=== PATIENT | female | born 1955 | race Caucasian/White ===

== ENCOUNTER 2016-11-02 11:30 | Inpatient (IN) | payer OTHER ==
[2016-11-07] MEDS ORDERED: ceFAZolin 1 GM in NORMAL SALINE MINI-BAG+ 100 ML IV PRN (06:07)
[2016-11-07] MEDS ORDERED: TRANEXAMIC ACID 1,000 MG in NORMAL SALINE 100 ML IV SCH ×2 (06:07→07:15)
[2016-11-07] MEDS ORDERED: TRANEXAMIC ACID 1,000 MG/10 ML VIAL IV ONE ×3 (06:37→13:09)
[2016-11-07] MEDS ORDERED: NORFLURANE/HFC 245FA 1 APPLIC CAN TOPICAL ONE (06:37)
[2016-11-07] MEDS ORDERED: BUPIVACAINE HCL/PF 0.25% 10 ML VIAL INJ ONE (07:07)
[2016-11-07] MEDS ORDERED: BACITRACIN 50,000 UNITS VIAL IM ONE (07:08)
[2016-11-07] MEDS ORDERED: BUPIVACAINE/EPI 0.5% 50 ML VIAL INFILTRAT ONE (07:08)
[2016-11-07] MEDS ORDERED: KETOROLAC TROMETHAMINE 30 MG/ML VIAL ONE (07:09)
[2016-11-07] MEDS ORDERED: ROPIVACAINE HCL 0.5% 30 ML ONE (07:10)
[2016-11-07] MEDS ORDERED: SODIUM CHLORIDE ONE (07:13)
[2016-11-07] MEDS ORDERED: LIDOCAINE HCL 1% 20 ML VIAL SUBCUT PRN (07:15)
[2016-11-07] MEDS ORDERED: ceFAZolin 1 GM in NORMAL SALINE MINI-BAG+ 100 ML IV SCH (07:15)
[2016-11-07] MEDS ORDERED: ACETAMINOPHEN 1,000 MG/100 ML VIAL IV SCH ×2 (07:15→08:34)
[2016-11-07] MEDS ORDERED: ONDANSETRON HCL 4 MG/2 ML VIAL IV PRN ×2 (07:15→08:34)
[2016-11-07] MEDS ORDERED: FAMOTIDINE IN SALINE, ISO-OSM 20 MG/50 ML PIGGYBACK IV SCH (07:15)
[2016-11-07] MEDS ORDERED: MIDAZOLAM HCL 2 MG/2 ML SYR IV PRN (07:15)
[2016-11-07] MEDS ORDERED: MORPHINE SULFATE/PF 10 MG/10 ML VIAL ONE (07:19)
[2016-11-07] MEDS ORDERED: FENTANYL 100 MCG/2 ML VIAL ONE (07:32)
[2016-11-07] MEDS ORDERED: TETRACAINE HCL 1% 20 MG/2 ML AMP ONE (07:33)
[2016-11-07] MEDS ORDERED: MIDAZOLAM HCL 2 MG/2 ML VIAL ONE (07:39)
[2016-11-07] MEDS ORDERED: LACTATED RINGERS 1,000 ML IV SCH ×4 (08:00→15:00)
[2016-11-07] MEDS ORDERED: LIDOCAINE HCL 2% 20 ML VIAL ONE (08:08)
[2016-11-07] MEDS ORDERED: NALOXONE HCL 0.4 MG/ML VIAL IV PRN ×6 (08:34→11:27)
[2016-11-07] MEDS ORDERED: DIPHENHYDRAMINE 25 MG CAPSULE PO PRN ×2 (08:34→11:27)
[2016-11-07] MEDS ORDERED: DIPHENHYDRAMINE 50 MG/ML VIAL IV PRN ×2 (08:34→11:27)
[2016-11-07] MEDS ORDERED: NALBUPHINE HCL 10 MG/ML AMP IV PRN ×2 (08:34→11:27)
[2016-11-07] MEDS ORDERED: FENTANYL 100 MCG/2 ML VIAL IV PRN (08:34)
[2016-11-07] MEDS ORDERED: ONDANSETRON HCL 4 MG/2 ML VIAL ONE (10:43)
--- NOTE | 2016-11-07 11:59 | OPERATIVE REPORT ---
Preoperative diagnosis: Right knee osteoarthritis Postoperative diagnosis: Right knee osteoarthritis Procedure: Right total knee arthroplasty Primary surgeon: Dr. Pardeep Sosa Anesthesia: Spinal with sedation Specimens removed: Diseased bone and soft tissue Estimated blood loss: Minimal Compilations: None Total tourniquet time: 84 minutes Procedure note: The patient was brought to the OR suite and after administration of spinal anesthesia the right lower extremity was prepped and draped in a sterile fashion. A well-padded tourniquet was applied to the right proximal thigh. The incision site was injected with half percent bupivacaine with epinephrine prior to incision. A midline longitudinal incision was made over the knee. Dissection was carried down through the layers. Any small bleeders were cauterized with electrocautery device. Flaps were created and a medial parapatellar arthrotomy was performed. Soft tissue releases were performed including removal of anterior fat pad the ACL and PCL were removed and the anterior horns of the medial lateral meniscus. An intramedullary drill was performed on the femur and the [email or web address] knee system instrumentation and cutting blocks were dialed into the patients specific requirements and the appropriate bone cuts and defects were made on both the femur, tibia and patella. After the distal cut on the femur and the proximal cut of the tibia are performed a 10 spacer block was inserted which demonstrated good balance. The trial implants were inserted and the knee was taken through full range of motion was noted to be exceptionally stable and well balanced throughout flexion and extension. Trial implants removed and the knee was copiously irrigated with bacitracin infused normal saline. The knee was injected with the cocktail containing 15mg Ketoralac, 150mg Robivicaine, 0.3ml Epinepherine 1:1000, 4mg Morphine Sulfate brought up to a volume of 50ml with normal saline. Gloves were changed throughout the case. The final implants were cemented into place and excess cement was removed. The cement was allowed to harden with the heel on the Rousseau stand with the knee in full extension. The final polyethylene was inserted and locked into place. The knee was again taken through full range of motion was noted to be stable throughout all ranges of motion and well-balanced. A Hemovac drain was placed. The parapatellar arthrotomy was closed utilizing #2 FiberWire intermittently with #1 Vicryl. The remainder of the closure was performed utilizing 0 Vicryl followed by 2-0 Vicryl followed by 3-0 Monocryl at level of the skin. The skin was closed with Dermabond and a Aquacell Ag dressing was placed followed by application of Adrian bandage and the Polar Care. The patient was transferred from the OR suite to the recovery room in stable condition. Orthopedic implants: 1. Isrrael Persona highly cross-linked polyethylene with vitamin E (Vivacit-E) right size 10 2. Isrrael Persona cemented posterior stabilized right size 6 femur 3. Isrrael Persona 29 mm x 8 mm thick all polyethylene patella 4. Isrrael Persona natural tibia 5 stem right size E. MTDD
[2016-11-07] MEDS ORDERED: TRANEXAMIC ACID 1,000 MG in NORMAL SALINE MINI-BAG+ 100 ML IV ONE (12:00)
[2016-11-07] MEDS ORDERED: NORMAL SALINE MINI-BAG+ 100 ML IV ONE (13:11)
[2016-11-07] MEDS: ASCORBIC ACID 500 MG TABLET PO SCH ×2 (13:18→21:08)
[2016-11-07] MEDS: FOLIC ACID 1 MG TABLET PO SCH (13:18)
[2016-11-07] MEDS: MULTIVITAMINS THERAPEUTIC 1 TABLET PO SCH (13:18)
[2016-11-07] MEDS ORDERED: LACTATED RINGERS 1,000 ML IV ONE (14:34)
[2016-11-07] MEDS: ceFAZolin 1 GM in NORMAL SALINE MINI-BAG+ 100 ML IV SCH (17:47)
[2016-11-08] MEDS: ceFAZolin 1 GM in NORMAL SALINE MINI-BAG+ 100 ML IV SCH ×2 (00:03→08:30)
[2016-11-08] MEDS: ACETAMINOPHEN 325 MG TABLET PO PRN (02:59)
[2016-11-08 07:21] LABS: HEMATOCRIT 34.7 % (36.0-48.0); HEMOGLOBIN 11.7 g/dL (12.0-16.0); MEAN CORPUS. HGB CONCENTRATION 33.7 g/dL (32.0-36.0); MEAN CORPUSCULAR HEMOGLOBIN 31.7 pg (29.0-35.0); RED BLOOD COUNT 3.69 X 10^6uL (4.20-6.10); RED CELL DISTRIBUTION WIDTH 12.5 % (11.5-14.5)
[2016-11-08 07:22] LABS: BASOPHILS 0.4 % (0.0-2.0); EOSINOPHILS 3.2 % (0.0-6.0); EOSINOPHILS# 0.2 X 10^3uL (0.0-0.4); LYMPHOCYTES 30.4 % (20.0-40.0); LYMPHOCYTES# 1.8 X 10^3uL (0.8-3.8); MEAN PLATELET VOLUME 7.3 fL (7.4-10.4); MONOCYTES 7.7 % (2.0-10.0); MONOCYTES# 0.5 X 10^3uL (0.2-1.0); NEUTROPHILS 58.3 % (54.0-75.0); NEUTROPHILS# 3.5 X 10^3uL (2.6-6.7)
[2016-11-08] MEDS: ENOXAPARIN SODIUM 30 MG/0.3 ML SYR SUBCUT SCH ×3 (08:41→20:50)
[2016-11-08] MEDS: FOLIC ACID 1 MG TABLET PO SCH (08:42)
[2016-11-08] MEDS: ASCORBIC ACID 500 MG TABLET PO SCH ×2 (08:42→20:50)
[2016-11-08] MEDS: MULTIVITAMINS THERAPEUTIC 1 TABLET PO SCH (08:42)
[2016-11-09 07:19] LABS: HEMATOCRIT 33.6 % (36.0-48.0); HEMOGLOBIN 11.1 g/dL (12.0-16.0); LYMPHOCYTES 27.4 % (20.0-40.0); MEAN CORPUSCULAR HEMOGLOBIN 31.6 pg (29.0-35.0); MEAN PLATELET VOLUME 7.3 fL (7.4-10.4); NEUTROPHILS 61.9 % (54.0-75.0); RED BLOOD COUNT 3.51 X 10^6uL (4.20-6.10); RED CELL DISTRIBUTION WIDTH 12.9 % (11.5-14.5); WHITE BLOOD COUNT 7.9 X 10^3uL (3.9-10.7)
[2016-11-09 07:20] LABS: BASOPHILS 0.4 % (0.0-2.0); EOSINOPHILS 2.1 % (0.0-6.0); EOSINOPHILS# 0.2 X 10^3uL (0.0-0.4); LYMPHOCYTES# 2.2 X 10^3uL (0.8-3.8); MONOCYTES 8.2 % (2.0-10.0); MONOCYTES# 0.7 X 10^3uL (0.2-1.0); NEUTROPHILS# 4.9 X 10^3uL (2.6-6.7)
[2016-11-09] MEDS: ONDANSETRON HCL 4 MG/2 ML VIAL IV PRN ×2 (07:42→12:25)
[2016-11-09] MEDS ORDERED: clonazePAM 1 MG TABLET PO PRN (08:35)
[2016-11-09] MEDS: MULTIVITAMINS THERAPEUTIC 1 TABLET PO SCH (08:39)
[2016-11-09] MEDS: ASCORBIC ACID 500 MG TABLET PO SCH ×3 (08:40→20:06)
[2016-11-09] MEDS: ENOXAPARIN SODIUM 30 MG/0.3 ML SYR SUBCUT SCH ×2 (08:40→20:05)
--- NOTE | 2016-11-09 08:43 | PROGRESS NOTE: Orthopedics ---
Orthopedic PN Subjective - Subjective Principal Diagnosis: s/p right total knee arthroplasty Post-op Day: 2 Interval history: Pt doing well. Ambulating out in the hallway to the windows with physical therapy. Pain well controlled. Ortho PN Objective Exam - Latest Vital Signs and I&O Latest Vital Signs/I&O: Vital Signs Temp 36.5 C 11/09/16 06:34 Pulse 84 11/09/16 06:34 Resp 13 11/09/16 06:34 BP 148/78 11/09/16 06:34 Pulse Ox 94 11/09/16 06:34 Intake & Output 11/08/16 11/09/16 11/09/16 17:59 05:59 17:59 Intake Total 687 250 Output Total 1350 300 Balance -663 -50 Intake: Oral 687 250 Output: Urine 1350 300 Other: Urine Appearance Clear Clear Urine Color Yellow Yellow Voiding Method Toilet Toilet # Voids 1 - Post-Operative Exam Post-op Day: 2 Dressing Status: dry & intact Drainage Amount: none Distal Pulses: +2 Active Motor: intact Sensation: intact Humera's sign: Negative Calf tenderness: no Weight bearing status: as tolerated - Lab Labs: Laboratory Last Values WBC 7.9 X 10^3uL (3.9-10.7) 11/09/16 05:00 RBC 3.51 X 10^6uL (4.20-6.10) L 11/09/16 05:00 Hgb 11.1 g/dL (12.0-16.0) L 11/09/16 05:00 Hct 33.6 % (36.0-48.0) L 11/09/16 05:00 MCV 96.0 fL (80.0-100.0) 11/09/16 05:00 MCH 31.6 pg (29.0-35.0) 11/09/16 05:00 MCHC 33.0 g/dL (32.0-36.0) 11/09/16 05:00 RDW 12.9 % (11.5-14.5) 11/09/16 05:00 Plt Count 228 X 10^3uL (130-440) 11/09/16 05:00 MPV 7.3 fL (7.4-10.4) L 11/09/16 05:00 Neutrophils % 61.9 % (54.0-75.0) 11/09/16 05:00 Lymphocytes % 27.4 % (20.0-40.0) 11/09/16 05:00 Eosinophils % 2.1 % (0.0-6.0) 11/09/16 05:00 Basophils % 0.4 % (0.0-2.0) 11/09/16 05:00 Neutrophils # 4.9 X 10^3uL (2.6-6.7) 11/09/16 05:00 Lymphocytes # 2.2 X 10^3uL (0.8-3.8) 11/09/16 05:00 Monocytes 8.2 % (2.0-10.0) 11/09/16 05:00 Monocytes # 0.7 X 10^3uL (0.2-1.0) 11/09/16 05:00 Eosinophils # 0.2 X 10^3uL (0.0-0.4) 11/09/16 05:00 Basophils # 0.0 X 10^3uL (0.0-0.1) 11/09/16 05:00 - Allied Health Notes Allied health notes reviewed: nursing, PT Assessment and Plan-Ortho - Date of Encounter Date of Encounter: 11/09/16 (1) S/P total knee arthroplasty Status: Acute Assessment and plan: Pt will continue with physical therapy. OOB tid. DVT and ABX PPx. Oral analgesia. El out today. Current Visit: Yes Quality Questions - VTE Prophylaxis Assessment VTE Present on Admission?: No Patient at risk for venous thromboembolism?: Yes VTE Risk Level: High Risk Pharmaceutical VTE prophylaxis contraindication reason: N/A- VTE prophylaxsis ordered Mechanical VTE prophylaxis contraindication reason: N/A- VTE prophylaxsis ordered (1) S/P total knee arthroplasty Qualifiers: Laterality: right Qualified Code(s): Z96.651 - Presence of right artificial knee joint
--- NOTE | 2016-11-09 08:58 | PROGRESS NOTE: Orthopedics ---
Orthopedic PN Subjective - Subjective Principal Diagnosis: s/p right total knee arthroplasty Post-op Day: 1 Interval history: Pt was seen and examined at bedside on POD#1 (11/10/16); on same day, labs and notes reviewed. Pt doing well. Ambulating well with PT out in the hallway. She was able to make it all the way to the windows. Has been receiving her DVT and ABX PPx. Her pain has been well controlled with oral analgesia. Ortho PN Objective Exam - Latest Vital Signs and I&O Latest Vital Signs/I&O: Vital Signs Temp 36.5 C 11/09/16 06:34 Pulse 84 11/09/16 06:34 Resp 13 11/09/16 06:34 BP 148/78 11/09/16 06:34 Pulse Ox 94 11/09/16 06:34 Intake & Output 11/08/16 11/09/16 11/09/16 17:59 05:59 17:59 Intake Total 687 250 Output Total 1350 300 Balance -663 -50 Intake: Oral 687 250 Output: Urine 1350 300 Other: Urine Appearance Clear Clear Urine Color Yellow Yellow Voiding Method Toilet Toilet # Voids 1 - Post-Operative Exam Post-op Day: 1 Dressing Status: dry & intact Drainage Amount: none Distal Pulses: +2 Active Motor: intact Sensation: intact Humera's sign: Negative Calf tenderness: no Weight bearing status: as tolerated - Lab Labs: Laboratory Last Values WBC 7.9 X 10^3uL (3.9-10.7) 11/09/16 05:00 RBC 3.51 X 10^6uL (4.20-6.10) L 11/09/16 05:00 Hgb 11.1 g/dL (12.0-16.0) L 11/09/16 05:00 Hct 33.6 % (36.0-48.0) L 11/09/16 05:00 MCV 96.0 fL (80.0-100.0) 11/09/16 05:00 MCH 31.6 pg (29.0-35.0) 11/09/16 05:00 MCHC 33.0 g/dL (32.0-36.0) 11/09/16 05:00 RDW 12.9 % (11.5-14.5) 11/09/16 05:00 Plt Count 228 X 10^3uL (130-440) 11/09/16 05:00 MPV 7.3 fL (7.4-10.4) L 11/09/16 05:00 Neutrophils % 61.9 % (54.0-75.0) 11/09/16 05:00 Lymphocytes % 27.4 % (20.0-40.0) 11/09/16 05:00 Eosinophils % 2.1 % (0.0-6.0) 11/09/16 05:00 Basophils % 0.4 % (0.0-2.0) 11/09/16 05:00 Neutrophils # 4.9 X 10^3uL (2.6-6.7) 11/09/16 05:00 Lymphocytes # 2.2 X 10^3uL (0.8-3.8) 11/09/16 05:00 Monocytes 8.2 % (2.0-10.0) 11/09/16 05:00 Monocytes # 0.7 X 10^3uL (0.2-1.0) 11/09/16 05:00 Eosinophils # 0.2 X 10^3uL (0.0-0.4) 11/09/16 05:00 Basophils # 0.0 X 10^3uL (0.0-0.1) 11/09/16 05:00 - Allied Health Notes Allied health notes reviewed: nursing, PT Assessment and Plan-Ortho - Date of Encounter Date of Encounter: 11/09/16 (1) S/P total knee arthroplasty Status: Acute Assessment and plan: Pt will continue with physical therapy. OOB tid. DVT and ABX PPx. Oral analgesia. El out today (POD#1) Current Visit: Yes Quality Questions - VTE Prophylaxis Assessment VTE Present on Admission?: No Patient at risk for venous thromboembolism?: No VTE Risk Level: High Risk Pharmaceutical VTE prophylaxis contraindication reason: N/A- VTE prophylaxsis ordered Mechanical VTE prophylaxis contraindication reason: N/A- VTE prophylaxsis ordered (1) S/P total knee arthroplasty Qualifiers: Laterality: right Qualified Code(s): Z96.651 - Presence of right artificial knee joint
[2016-11-09] MEDS: FOLIC ACID 1 MG TABLET PO SCH (10:19)
[2016-11-09] MEDS: LISINOPRIL 20 MG TABLET PO SCH (10:33)
[2016-11-09] MEDS: HYDROCHLOROTHIAZIDE 25 MG TABLET PO SCH (10:34)
[2016-11-09] MEDS: SERTRALINE HCL 50 MG TABLET PO SCH (10:35)
[2016-11-09] MEDS: ACETAMINOPHEN 325 MG TABLET PO PRN ×3 (10:47→20:05)
[2016-11-09] MEDS ORDERED: ATORVASTATIN CALCIUM 10 MG TABLET PO SCH (17:00)
--- NOTE | 2016-11-09 19:08 | RADIOLOGY REPORT ---
Two limited views of the right knee are compared with prior films dated 2015. There has been interval right total knee replacement. Components appear intact and in appropriate position. Surgical drain is noted. IMPRESSION: Interval unremarkable right total knee arthroplasty. MTDD
[2016-11-09] MEDS ORDERED: MELATONIN 3 MG TABLET PO SCH (21:00)
[2016-11-10 05:53] VITALS: BP 137/63; PULSE 90; RESP 16; TEMP 100.1
[2016-11-10] MEDS: ACETAMINOPHEN 325 MG TABLET PO PRN ×2 (06:30→11:49)
[2016-11-10 07:17] LABS: HEMATOCRIT 30.8 % (36.0-48.0); HEMOGLOBIN 10.3 g/dL (12.0-16.0); MEAN CORPUS. HGB CONCENTRATION 33.4 g/dL (32.0-36.0); RED BLOOD COUNT 3.25 X 10^6uL (4.20-6.10); WHITE BLOOD COUNT 7.1 X 10^3uL (3.9-10.7)
[2016-11-10 07:18] LABS: EOSINOPHIL % (Manual) 2 % (0.0-6.0); LYMPHOCYTE % (Manual) 9 % (20.0-40.0); MONOCYTE % (Manual) 14 % (2.0-10.0); NEUTROPHIL % (Manual) 75 % (54.0-75.0); PLATELET COUNT 206 X 10^3uL (130-440); PLATELET ESTIMATE ADEQUATE
[2016-11-10] MEDS: ENOXAPARIN SODIUM 30 MG/0.3 ML SYR SUBCUT SCH (08:27)
[2016-11-10] MEDS: HYDROCHLOROTHIAZIDE 25 MG TABLET PO SCH (08:27)
[2016-11-10] MEDS: LISINOPRIL 20 MG TABLET PO SCH (08:27)
[2016-11-10] MEDS: MULTIVITAMINS THERAPEUTIC 1 TABLET PO SCH (08:28)
[2016-11-10] MEDS: SERTRALINE HCL 50 MG TABLET PO SCH (08:28)
[2016-11-10] MEDS: FOLIC ACID 1 MG TABLET PO SCH (08:28)
[2016-11-10] MEDS: ASCORBIC ACID 500 MG TABLET PO SCH (08:28)
--- NOTE | 2016-11-10 09:49 | DC SUMMARY: Orthopedic Note ---
Discharge Summary: Surg/OB Provider: Date of Admission: 11/07/16 Admitting Provider: CALEB BARR DO Attending Provider: CALEB BARR DO Discharging Provider: CALEB BARR DO Primary Care Provider: Discharge Date: 11/10/16 - Diagnosis (1) S/P total knee arthroplasty Status: Acute Qualifiers: Laterality: right Qualified Code(s): Z96.651 - Presence of right artificial knee joint Hospital Course: Ms. NEGRON is a 61 year old female who underwent a total knee arthroplasty on 07 November. The patient did well with her postoperative PTx. She did receive DVT and ABX PPx. Pain was well controlled with oral analgesia. Her O2 saturation on day of discharge was 85-87% and so she will have home O2. She may shower and leave dressing in place. She will have outpatient PTx. Will continue Lovenox and Teds for 14 days post-op total. She will follow up next week in my office. Discharge - Patient/Caregiver Discharge Instructions Activity Level: WBAT with walker Diet: reg Follow up: CALEB BARR DO [ACTIVE (Staff Physician)] - 11/15/16 10:00 am Overall discharge status: stable Home Medications: Enoxaparin Sodium [LOVENOX 30mg/0.3mL*] 30 mg SUBCUT BID #22 syr Disposition: HOME, SELF-CARE Orthopedic: Discharge Phy Exam - Latest Vital Signs and I&O Latest Vital Signs/I&O: Vital Signs Temp 37.8 C H 11/10/16 05:52 Pulse 90 11/10/16 05:52 Resp 16 11/10/16 05:52 BP 137/63 11/10/16 05:52 Pulse Ox 93 11/10/16 05:52 Intake & Output 11/09/16 11/10/16 11/10/16 17:59 05:59 17:59 Intake Total 977 350 230 Output Total 600 1500 Balance 377 -1150 230 Weight 76.2 kg Intake: Oral 977 350 Oral Supplement 230 Output: Urine 600 1500 Other: Urine Appearance Clear Clear Urine Color Yellow Yellow Stool Size Moderate Moderate Stool Characteristics Soft Soft Brown Voiding Method Toilet Toilet # Voids 2 3 # Bowel Movements 2 2 - Post-Operative Exam Post-op Day: 3 Dressing Status: dry & intact Drainage Amount: none Distal Pulses: +2 Active Motor: intact Sensation: intact Humera's sign: Negative Calf tenderness: no Weight bearing status: as tolerated - Allied Health Notes Allied health notes reviewed: nursing, PT Discharge Summary Data - Medication History Medication History: Home Medications Hydrochlorothiazide [Hydrodiuril*] 12.5 mg PO DAILY 03/04/13 Lisinopril [Prinivil*] 20 mg PO DAILY 03/04/13 clonazePAM [Klonopin*] 1 mg PO BID PRN 03/04/13 Ascorbic Acid [Vitamin C*] 500 mg PO DAILY 11/02/16 Atorvastatin Calcium [Lipitor*] 20 mg PO DAILY 11/02/16 aspirin EC [Aspirin EC*] 81 mg PO DAILY 11/02/16 Melatonin [Melatonin*] 2.5 mg PO HS 11/07/16 Sertraline HCl [Zoloft*] 25 mg PO DAILY 11/07/16 Inpatient Medications 11/07/16 11:27 Acetaminophen [Tylenol] 325 - 650 mg PO Q4H PRN Folic Acid [Folate] 1 mg PO DAILY Multivitamins,Therapeutic [Thera] 1 tab PO DAILY Ondansetron HCl [Zofran] 4 mg IV Q4H PRN hydroCODone/APAP 5/325 MG [[place]] 2 tab PO Q3H PRN oxyCODONE HCL IR [Oxy Ir] 5 - 10 mg PO Q3H PRN 11/07/16 15:00 Lactated Ringers [Lr 1000 ml Bag] 1,000 ml IV CONT 11/08/16 08:00 Enoxaparin Sodium [Lovenox] 30 mg SUBCUT BID 11/09/16 08:35 clonazePAM [KlonoPIN] 1 mg PO BID PRN 11/09/16 09:00 Ascorbic Acid [Vitamin C] 500 mg PO DAILY Hydrochlorothiazide [Hydrodiuril] 12.5 mg PO DAILY Lisinopril [Prinivil] 20 mg PO DAILY Sertraline HCl [Zoloft] 25 mg PO DAILY 11/09/16 17:00 Atorvastatin Calcium [Lipitor] 20 mg PO DAILY@1700 11/09/16 21:00 Melatonin 3 mg PO HS Procedures and tests throughout hospitalization: Completed Lab Orders 11/07/16 14:25 PLATELET COUNT [HEM] Stat 11/08/16 06:15 CBC AUTO DIF, MDIF/RMOR IF IND [HEM] AMDRAW 11/09/16 05:00 CBC AUTO DIF, MDIF/RMOR IF IND [HEM] AMDRAW 11/10/16 04:30 CBC W/ MANUAL DIFFERENTIAL [HEM] Routine Completed Imaging Orders 11/07/16 11:27 KNEE; 1 [place] 2 [place] [id number] [RAD] Routine Completed Microbiology Orders 11/09/16 11:50 OCCULT BLOOD (1-3 SAMPLES) [RM] Pending Orders 11/05/16 23:35 Resuscitation Status Routine 11/07/16 06:07 Insert Peripheral IV ONCE PreOp Chlorahexidine wash .5minPreOp 11/07/16 07:15 Anesthesia Type . Insert Peripheral IV ONCE 11/07/16 08:34 Donovan hugger if temp <34 C PRN Did pt have a spinal/epidural? . Maintain IV access post spinal CONTINUOUS Monitor End Tidal CO2 CONTINUOUS Narcan @ bedside x24h after sp .x24hrs Notify Anesthesia . Oxygen by Nasal Cannula TITRATE TO >90% Titrate Oxygen TITRATE TO >90% Vital Signs Q1HX12,Q2H Warm blankets if temp<36 C PRN 11/07/16 11:27 Admit: Inpatient Routine Activity: Ambulate with Assist TID Activity: BRP w/ Assist Only . Activity: FWB USE WALKER Activity: Knee Extension . Activity: Up to Chair TID Apply ice to affected area PRN Clinical Pathway: updt in cht QSHIFT Incentive Spirometry Q1H Intake and Output QSHIFT I&O Notify Physician . Oxygen by Nasal Cannula TITRATE TO >90% Sequential Compression Device WHILE IN BED GIDEON Hose CONTINUOUS Titrate Oxygen TITRATE TO >90% Turn, Cough, and Deep Breathe Q2H Vital Signs ROUTINE VITALS (Q4H) Research Statistician Consult [CM] Routine Acetaminophen [Tylenol] 325 - 650 mg PO Q4H PRN Folic Acid [Folate] 1 mg PO DAILY Multivitamins,Therapeutic [Thera] 1 tab PO DAILY Ondansetron HCl [Zofran] 4 mg IV Q4H PRN hydroCODone/APAP 5/325 MG [Silver [place]] 2 tab PO Q3H PRN oxyCODONE HCL IR [Oxy Ir] 5 - 10 mg PO Q3H PRN 11/07/16 15:00 Lactated Ringers [Lr 1000 ml Bag] 1,000 ml IV CONT 11/07/16 15:56 Physical Therapy Plan of Care [PT] Routine 11/07/16 20:00 Transfer to Floor PER PROTOCOL 11/07/16 Lunch Regular [DIET] 11/08/16 08:00 Enoxaparin Sodium [Lovenox] 30 mg SUBCUT BID 11/09/16 08:35 clonazePAM [KlonoPIN] 1 mg PO BID PRN 11/09/16 09:00 Ascorbic Acid [Vitamin C] 500 mg PO DAILY Hydrochlorothiazide [Hydrodiuril] 12.5 mg PO DAILY Lisinopril [Prinivil] 20 mg PO DAILY Sertraline HCl [Zoloft] 25 mg PO DAILY 11/09/16 11:35 Ensure Plus Supplement BID 11/09/16 17:00 Atorvastatin Calcium [Lipitor] 20 mg PO DAILY@1700 11/09/16 21:00 Melatonin 3 mg PO HS Labs on day of discharge: Labs from last 24 hours 11/10/16 04:30 WBC 7.1 RBC 3.25 L Hgb 10.3 L Hct 30.8 L MCV 95.0 MCH 31.0 MCHC 33.4 RDW Not Reportable Plt Count 206 MPV Not Reportable Total Counted 100 Neutrophils % Cancelled Neutrophils % (Manual) 75 Lymphocytes % Cancelled Lymphocytes % (Manual) 9 L Monocytes % (Manual) 14 H Eosinophils % Cancelled Eosinophils % (Manual) 2 Basophils % Cancelled Neutrophils # Cancelled Lymphocytes # Cancelled Monocytes Cancelled Monocytes # Cancelled Eosinophils # Cancelled Basophils # Cancelled Platelet Estimate Adequate Hypochromic-Microcytic 10-19% of cells
--- NOTE | 2016-11-10 10:13 | PROGRESS NOTE: Orthopedics ---
Orthopedic PN Subjective - Subjective Principal Diagnosis: s/p total knee arthroplasty Post-op Day: 3 Interval history: O2 saturation down in mid 80s. Ortho PN Objective Exam - Latest Vital Signs and I&O Latest Vital Signs/I&O: Vital Signs Temp 37.8 C H 11/10/16 05:52 Pulse 90 11/10/16 05:52 Resp 16 11/10/16 05:52 BP 137/63 11/10/16 05:52 Pulse Ox 93 11/10/16 05:52 Intake & Output 11/09/16 11/10/16 11/10/16 17:59 05:59 17:59 Intake Total 977 350 230 Output Total 600 1500 Balance 377 -1150 230 Weight 76.2 kg Intake: Oral 977 350 Oral Supplement 230 Output: Urine 600 1500 Other: Urine Appearance Clear Clear Urine Color Yellow Yellow Stool Size Moderate Moderate Stool Characteristics Soft Soft Brown Voiding Method Toilet Toilet # Voids 2 3 # Bowel Movements 2 2 - Post-Operative Exam Post-op Day: 3 Dressing Status: dry & intact Drainage Amount: none Distal Pulses: +2 Active Motor: intact Sensation: intact Humera's sign: Negative Calf tenderness: no Weight bearing status: as tolerated - Lab Labs: Laboratory Last Values WBC 7.1 X 10^3uL (3.9-10.7) 11/10/16 04:30 RBC 3.25 X 10^6uL (4.20-6.10) L 11/10/16 04:30 Hgb 10.3 g/dL (12.0-16.0) L 11/10/16 04:30 Hct 30.8 % (36.0-48.0) L 11/10/16 04:30 MCV 95.0 fL (80.0-100.0) 11/10/16 04:30 MCH 31.0 pg (29.0-35.0) 11/10/16 04:30 MCHC 33.4 g/dL (32.0-36.0) 11/10/16 04:30 RDW Not Reportable 11/10/16 04:30 Plt Count 206 X 10^3uL (130-440) 11/10/16 04:30 MPV Not Reportable 11/10/16 04:30 Total Counted 100 11/10/16 04:30 Neutrophils % 61.9 % (54.0-75.0) 11/09/16 05:00 Neutrophils % (Manual) 75 % (54.0-75.0) 11/10/16 04:30 Lymphocytes % 27.4 % (20.0-40.0) 11/09/16 05:00 Lymphocytes % (Manual) 9 % (20.0-40.0) L 11/10/16 04:30 Monocytes % (Manual) 14 % (2.0-10.0) H 11/10/16 04:30 Eosinophils % 2.1 % (0.0-6.0) 11/09/16 05:00 Eosinophils % (Manual) 2 % (0.0-6.0) 11/10/16 04:30 Basophils % 0.4 % (0.0-2.0) 11/09/16 05:00 Neutrophils # 4.9 X 10^3uL (2.6-6.7) 11/09/16 05:00 Lymphocytes # 2.2 X 10^3uL (0.8-3.8) 11/09/16 05:00 Monocytes 8.2 % (2.0-10.0) 11/09/16 05:00 Monocytes # 0.7 X 10^3uL (0.2-1.0) 11/09/16 05:00 Eosinophils # 0.2 X 10^3uL (0.0-0.4) 11/09/16 05:00 Basophils # 0.0 X 10^3uL (0.0-0.1) 11/09/16 05:00 Platelet Estimate Adequate 11/10/16 04:30 Hypochromic-Microcytic 10-19% of cells 11/10/16 04:30 - Allied Health Notes Allied health notes reviewed: nursing, PT Assessment and Plan-Ortho - Date of Encounter Date of Encounter: 11/10/16 (1) S/P total knee arthroplasty Status: Acute Current Visit: Yes (2) Postoperative anemia due to acute blood loss Status: Acute Assessment and plan: Will receive home O2. Current Visit: Yes (1) S/P total knee arthroplasty Qualifiers: Laterality: right Qualified Code(s): Z96.651 - Presence of right artificial knee joint
[2016-11-10 11:49] VITALS: O2SAT 92
--- NOTE | 2016-11-17 15:07 | PREOPERATIVE H&P ---
History of Present Illness (Pardeep Sheila SHRESTHA; 11/02/2016 5:48 PM) The patient is a 61 year old female. Patient presents for her preop for her total knee arthroplasty. The patient has had continued pain with extreme pain with certain activities. Her pain in her knee has limited her range of motion and function including daily activities. 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 Codeine Phosphate *ANALGESICS - OPIOID* Nausea. (Marked as Inactive) Immunization History (Pardeep Sosa DO; 11/02/2016 5:48 PM) PCN Rash. Family History (Kaylan Matthews RN; 11/02/2016 10:53 AM) Brother @ 45 of [place] No Significant Family Ocular History Brother 1 [place] @ 40 Father @ 42 of CVA Mother @ 64 of Lung Cancer secondary to smoking Social History (Kaylan Matthews RN; 11/02/2016 10:53 AM) Alcohol use Occasional alcohol use, Drinks wine. approx 1 serving every 4-6 days Tobacco use Never smoker. Vehicle Driving Yes. No drug use Nutrition no red meat. Medication History (Kaylan Matthews RN; 11/02/2016 10:53 AM) ClonazePAM (1MG Tablet, 1 Oral 1 po bid, Taken starting 07/06/2016) Active. Lisinopril (20MG Tablet, 1 Oral daily, Taken starting 09/06/2016) Active. HydroCHLOROthiazide (12.5MG Capsule, 1 (one) Oral daily, Taken starting 2016) Active. Sertraline HCl (25MG Tablet, 1 (one) Oral 1 po daily, Taken starting 10/29/2016 ) Active. (med accidently was inactivated) Atorvastatin Calcium (20MG Tablet, 1 (one) Oral 1 po daily, Taken starting 12/2016) Active. Vitamin C (500MG Tablet, Oral) Active. Calcium (600MG Tablet, Oral) Active. (1200 mg) Aspirin (81MG Tablet DR, 1 tab Oral daily) Discontinued. Melatonin (2.5MG Tablet Chewable, Oral) Active. Medications Reconciled Past Surgical History (Pardeep Sosa DO; 11/02/2016 5:48 PM) T&A Lt Salpingo Oophorectomu Cholecystectomy Sinus Surgery Lt Foot surgery x2 Vaginal Hysterectomy Endometriosis R Knee [id number] Rt Knee [id number] Dr Sosa Health Maintenance History (Pardeep Sosa DO; 11/02/2016 5:48 PM) [id number] Uoplycfknzp80/26/2015 Tubular adenoma, repeat 5 years Ivwuxypik35/2016 Normal. BiRads1 DEXA 07/2015 Normal. Other Problems (Pardeep Sosa DO; 11/02/2016 5:48 PM) Health education/counseling (Z71.9) Bronchitis (J40) Preoperative examination (V72.84) (Z01.818) Health education/counseling (Z71.89) Mammogram, need for (V76.12) (Z12.31) Wrist pain, right (M25.531) Encounter for routine adult health examination without abnormal findings (Z00.00 ) Encounter for immunization (Z23) Review of Systems (Pardeep Sosa DO; 11/02/2016 5:48 PM) General Not Present- Chills and Fever. Skin Not Present- Erythema, Skin Color Changes and Skin Problems. HEENT Not Present- Sleep Apnea. Neck Not Present- Neck Pain. Respiratory Not Present- Cough and Shortness of Breath. Cardiovascular Not Present- Chest Pain, Difficulty Breathing On Exertion, Fainting and Leg Pain and/or Swelling. Gastrointestinal Not Present- Abdominal Pain, Nausea and Vomiting. Female Genitourinary Not Present- Painful Urination. Musculoskeletal Not Present- Decreased Range of Motion, Joint Pain, Joint Stiffness, Joint Swelling, Muscle Pain and Muscle Weakness. Neurological Not Present- Dizziness, Focal Neurological Symptoms, Numbness in extremities, Trouble walking and Weakness. Psychiatric Not Present- Anorexia, Anxiety and Depression. Endocrine Not Present- Weight Loss. Hematology Not Present- Bleeding Problems, DVT and Easy Bruising. Vitals (Kaylan Matthews RN; 11/02/2016 10:53 AM) 11/02/2016 10:51 AM Weight: 170 lb Height: 63.5in Body Surface Area: 1.82 m Body Mass Index: 29.64 kg/m Temp.: 97.1F Pulse: 76 (Regular) Resp.: 16 (Unlabored) BP: 130/82 (Sitting, Left Arm, Standard) Physical Exam (Pardeep Sosa DO; 11/02/2016 5:49 PM) The physical exam findings are as follows: The patient's skin over the anterior aspect of the right knee is intact. There are no signs of swelling, erythema or increased temperature. Normal sensation and adequate perfusion of the extremity. Plain film x-rays were reviewed today which demonstrate arthritic changes with joint space narrowing, subchondral sclerosis and loss of her formation. Assessment & Plan (Pardeep Sosa DO; 11/02/2016 5:50 PM) Primary osteoarthritis of right knee (M17.11) Impression: Planning right TKA 11/07/16 After educating the patient regarding treatment options with their associated risks and benefits, the patient elected to proceed with surgical treatment of the injury/pathology with RIGHT TOTAL KNEE ARTHROPLASTY. The risks and benefits of the specific procedure were explained and all questions and concerns were addressed and answered. Post operative rehabilitation requirements and expectations for optimal outcome were reviewed and the patient confirmed understanding these and committed to compliance. All questions answered. The patient will be optimized medically by consultation with their primary care physician prior to their procedure. Signed by Pardeep Sosa DO (11/02/2016 5:50 PM) SHANNAN
== END 2016-11-10 10:06 | disposition home or self-care (01) | DRG 470 ==
LOC: UNDOADMIN 11-07 05:56 → IN 11-07 05:56
PROVIDERS: ADMIT Orthopaedic Surgery; ATTEND Orthopaedic Surgery
PROC: 0SRC0J9 Replacement of Right Knee Joint with Synthetic Substitute, Cemented, Open Approach (ICD-10-PCS; principal; 2016-11-07)
DX: M17.11 Unilateral primary osteoarthritis, right knee (principal); D62 Acute posthemorrhagic anemia; G47.00 Insomnia, unspecified; I10 Essential (primary) hypertension; E78.2 Mixed hyperlipidemia; F41.9 Anxiety disorder, unspecified; Z86.010 Personal history of colon polyps; M15.9 Polyosteoarthritis, unspecified
CPT/HCPCS: 36415; 82270; 85007; 85025; 85027; 85049; 94664; C1776; J0171; J0690; J1650; J1885; J2250; J2405; J2550; J2795; J3010; J7120; S0020